=== PATIENT | male | born 1985 | race Caucasian/White ===

== ENCOUNTER 2018-03-31 13:37 | Outpatient (CLI) | payer OTHER | END 2018-03-31 13:38 | disposition home or self-care (01) | LOC: SC 13:37 | PROVIDERS: ATTEND Internal Medicine Pulmonary Disease | DX: G47.10 Hypersomnia, unspecified (principal); R06.83 Snoring; G47.8 Other sleep disorders; R41.89 Other symptoms and signs involving cognitive functions and awareness | CPT/HCPCS: 99203; 99212 ==

== ENCOUNTER 2018-04-09 20:31 | Outpatient (CLI) | payer OTHER | END 2018-04-09 20:32 | disposition home or self-care (01) | LOC: SC 20:31 | PROVIDERS: ATTEND Internal Medicine Pulmonary Disease | DX: R06.83 Snoring (principal); G47.10 Hypersomnia, unspecified | CPT/HCPCS: 95810 ==